=== PATIENT | male | born 1995 | race Caucasian/White ===

== ENCOUNTER 2021-04-12 00:04 | Emergency (ER) | payer OTHER ==
[~2021-04-12] VITALS: Ht 175.3 cm; Wt 63.6 kg
[2021-04-12 00:09] VITALS: BP 128/73
[2021-04-12 00:48] LABS: CLARITY,URINE CLEAR (Clear); GLUCOSE, URINE NEGATIVE (Neg); KETONES,URINE NEGATIVE (Neg); LEUKOCYTE ESTERASE ,URINE LARGE (Neg); NITRITES, URINE NEGATIVE (Neg); OCCULT BLOOD,URINE LARGE (Neg); PROTEIN,URINE TRACE mg/dl (Neg); UROBILINOGEN,URINE 0.2 E.U/dL (0.2-1.0)
[2021-04-12 00:56] LABS: COLOR,URINE PINK (Yellow); UA COLLECTION TYPE CLN CATCH MIDSTREAM
[2021-04-12 00:58] LABS: BACTERIA,URINE FEW /HPF (Neg); RBC,URINE 0-2 /HPF (0-2); SQUAMOUS EPITHELIAL CELL,UR FEW /LPF (FEW)
[2021-04-12] MEDS ORDERED: CEPH-585 PO (01:37)
[2021-04-12] MEDS ORDERED: PHEN-716 PO (01:37)
[2021-04-12] MEDS ORDERED: cephalexin 250mg capsule PO ONE (01:40)
[2021-04-12] MEDS ORDERED: phenazopyridine 100mg tablet PO ONE (01:40)
== END 2021-04-12 01:58 | disposition home or self-care (01) ==
LOC: ER 00:04
DX: N39.0 Urinary tract infection, site not specified (principal); R31.9 Hematuria, unspecified; Z79.899 Other long term (current) drug therapy
CPT/HCPCS: 81001; 87077; 87088; 87186; 99283

== ENCOUNTER 2021-05-03 11:22 | Emergency (ER) | payer OTHER ==
[~2021-05-03] VITALS: Ht 175.3 cm; Wt 61.5 kg
[~2021-05-03 11:22] MED LIST: CEPH-585 PO; PHEN-716 PO
[2021-05-03 12:03] VITALS: BP 126/75
[2021-05-03 13:40] LABS: CLARITY,URINE CLEAR (Clear); COLOR,URINE STRAW (Yellow); GLUCOSE, URINE NEGATIVE (Neg); KETONES,URINE NEGATIVE (Neg); LEUKOCYTE ESTERASE ,URINE LARGE (Neg); NITRITES, URINE NEGATIVE (Neg); OCCULT BLOOD,URINE NEGATIVE (Neg); PROTEIN,URINE NEGATIVE (Neg); UROBILINOGEN,URINE 0.2 E.U/dL (0.2-1.0)
[2021-05-03 13:47] LABS: URINE HCG NEGATIVE
[2021-05-03 13:56] LABS: UA COLLECTION TYPE CLN CATCH MIDSTREAM
[2021-05-03 13:59] LABS: BACTERIA,URINE FEW /HPF (Neg); MUCUS STRANDS NONE SEEN /LPF (Neg); RBC,URINE NONE SEEN /HPF (0-2); SQUAMOUS EPITHELIAL CELL,UR FEW /LPF (FEW)
[2021-05-03] MEDS ORDERED: CEFD300C3 PO (14:40)
== END 2021-05-03 15:10 | disposition home or self-care (01) ==
LOC: ER 11:22
DX: N39.0 Urinary tract infection, site not specified (principal); R10.30 Lower abdominal pain, unspecified; R30.0 Dysuria; Z87.440 Personal history of urinary (tract) infections; Z79.2 Long term (current) use of antibiotics; Z79.899 Other long term (current) drug therapy
CPT/HCPCS: 74176; 81001; 81025; 87088; 99284

== ENCOUNTER 2021-05-07 13:57 | Emergency (ER) | payer OTHER ==
[~2021-05-07] VITALS: Ht 175.3 cm; Wt 61.2 kg
[~2021-05-07 13:57] MED LIST changes: +CEFD300C3 PO
[2021-05-07 14:23] VITALS: BP 127/65
[2021-05-07 14:48] LABS: CLARITY,URINE CLEAR (Clear); COLOR,URINE STRAW (Yellow); GLUCOSE, URINE NEGATIVE (Neg); KETONES,URINE NEGATIVE (Neg); LEUKOCYTE ESTERASE ,URINE TRACE (Neg); NITRITES, URINE NEGATIVE (Neg); OCCULT BLOOD,URINE NEGATIVE (Neg); PROTEIN,URINE NEGATIVE (Neg); UROBILINOGEN,URINE 0.2 E.U/dL (0.2-1.0)
[2021-05-07 14:50] LABS: UA COLLECTION TYPE CLN CATCH MIDSTREAM
[2021-05-07 14:54] LABS: SQUAMOUS EPITHELIAL CELL,UR FEW /LPF (FEW); TRANSITIONAL EPI CELLS,URINE FEW /HPF
[2021-05-07 14:55] LABS: BACTERIA,URINE FEW /HPF (Neg); RBC,URINE 0-2 /HPF (0-2); WBC,URINE 0-4 /HPF (0-4)
--- NOTE | 2021-05-07 15:33 | NUR ---
DX WITH UTI ON SATURDAY. PAIN PERSISTS TO LOWER PUBIC AREA. NOW HAVING PAIN IN LOWER BACK AREA. DENIES BLOODY URINE OR FREQUENCY. TAKING CEFDINIR 300 MG BID. HAVING GI UPSET WITH NAUSEA AND DIARRHEA SINCE STARTING ON ABX.
[2021-05-07] MEDS ORDERED: LACT1CAP26 PO (17:05)
== END 2021-05-07 17:23 | disposition home or self-care (01) ==
LOC: ER 13:57
DX: R10.30 Lower abdominal pain, unspecified (principal); M54.5 Low back pain; Z79.2 Long term (current) use of antibiotics; Z79.899 Other long term (current) drug therapy; Z87.440 Personal history of urinary (tract) infections
CPT/HCPCS: 81001; 87088; 99283